=== PATIENT | male | born 1970 | race Caucasian/White ===

== ENCOUNTER 2024-06-08 14:57 | Inpatient (IN) ==
--- NOTE | 2024-06-08 16:41 | XRay Report ---
EXAM: X-ray chest 1 view not portable CLINICAL HISTORY: Weakness, fatigue PRIORS: None TECHNIQUE: PA view chest FINDINGS: The chest is well-expanded. No airspace consolidation, effusion or congestive changes. Heart size is normal. No pneumothorax. Trachea is patent. Osseous structures demonstrate no acute abnormality. No radiopaque foreign body. IMPRESSION: No plain film evidence of an acute cardiopulmonary process. Electronically signed by Guillermina Grace 06-08-2024 4:41 PM
--- NOTE | 2024-06-08 16:44 | Emergency Department Note ---
Impression & Plan Sepsis due to urinary tract infection, Hypokalemia, LIUDMILA (acute kidney injury), Rigors ED Provider Note Provider: Matthew Gifford MD CHIEF COMPLAINT: Weak, lethargic, short of breath HISTORY OF PRESENT ILLNESS: Patient is a 54-year-old gentleman presenting here today reporting onset overnight of chills with some rectal discomfort, weakness, lethargy and shortness of breath since a prostate biopsy yesterday. Was well before the biopsy. Did take a Cipro tablet before. At the biopsy. Had a bit low bit discomfort with bowel movement yesterday and some blood in the urine but this was not noted to be atypical. Well this morning and then around 11 AM to noon or so patient began with extreme uncontrollable chills and shaking. No seizure or loss of consciousness. Has been tired and lethargic however. Has not fallen but son states he seemed a bit out of it at 1 point and he had to catch him. Maybe a little shortness of breath but nonsignificant. No significant chest pain. States he feels just worn out and tired all over. Little bit of rectal discomfort but no significant testicular pain or other abdominal pain reported. No severe nausea or vomiting reported. Did take a Tylenol first thing this morning but not in hours. PAST MEDICAL HISTORY: As noted above MEDICATIONS: Reviewed home medications SOCIAL HISTORY: Non-smoker PHYSICAL EXAM: GENERAL: alert and oriented in no acute distress on stretcher but fatigued in appearance. Son at bedside Head: normocephalic and atraumatic EYES: No injection, discharge or icterus. NECK: Trachea midline ENT: Mucous membranes pink and moist. LUNGS: Airway patent. No retractions. Breath sounds clear with good air entry bilaterally. HEART: Regular rate and rhythm. No chest wall tenderness ABDOMEN: Soft and non-tender, without guarding or rebound. SKIN: Acyanotic, warm, dry, without rashes EXTREMITIES: Without swelling, tenderness or deformity NEUROLOGICAL: No focal deficits. No aphasia. No facial droop or slurred speech. Normal strength and tone in the extremities. Sensation to gross touch normal. Ambulatory. EK bpm sinus tachycardia. No PVC or PAC. Nonspecific T wave changes with a QTc of 408. CONTINUOUS CARDIAC MONITORING: was ordered and showed a heart rate of 100s-130s bpm in sinus tachycardia Patient's laboratory studies and imaging reviewed. Differential includes Infection, dehydration, metabolic abnormality, hypo/hyperglycemia, electrolyte disturbance, anemia, hypoxia, cardiac sources, intracerebral event, toxicologic, neurologic, as well as other pathologies. IMPRESSION/MEDICAL DECISION MAKING: Patient significantly tachycardic. Question if he is septic and the symptoms he describes are present rigors given his recent prostate biopsy. Cultures lactate labs sent. Given IV fluids 2.5 liters per sepsis goals given his tachycardia. Will empirically cover with a dose of Zosyn given my concerns for systemic infection. Patient afebrile here. Not hypoxic. Chest x-ray reassuring. Sent for CT the abdomen pelvis to eval prostate biopsy site for any other abnormality, abscess, or perforation. Lactate elevated upon arrival at 4.9. Creatinine 1.4 somewhat elevated with mild hypokalemia of 3.0. Very slight AST ALT alkaline phosphatase elevation with normal bilirubin. Urinalysis concerning for white blood cells as well as blood. Again empirically covered with antibioticsZosyn. Leukocytosis of 16.5. CT abdomen pelvis with some slight information the prostate but no other free air or abscess reported. Patient is feeling bit better but obviously septic. Procalcitonin severely elevated at 30. Has received broad-spectrum Zosyn. Will bring in the hospital for further care. Again have strong suspicion patient was having some bacteremia causing rigors earlier. He was agreeable to stay. Hospitalist contacted and case discussed. DIAGNOSIS: Sepsis of urinary origin, elevated lactate, LIUDMILA DISPOSITION: Hospitalist will evaluate Patient was agreeable with this plan. Critical Care I have personally spent 36 minutes of critical care time in the direct management of this patient. This includes bedside care, interpretation of diagnostic studies, and testing, discussion with consultants, patient, and family members, and other required patient management activities. These 36 minutes is in excess of all separately billable procedures. Past Med/Surg History Problem List (Updated 06/08/24 @ 19:38 by Jerry Nguyễn MD) Sepsis Rigors (Acute) LIUDMILA (acute kidney injury) (Acute) Hypokalemia (Acute) Sepsis due to urinary tract infection (Acute) Elevated prostate specific antigen (PSA) Microscopic hematuria Nocturnal hypoxemia Severe obstructive sleep apnea HTN (hypertension) (Chronic) Erectile dysfunction (Chronic) ROSA (obstructive sleep apnea) Medical History Blood in urine Chronic back pain HTN (hypertension) Kidney stones Surgical History S/P epidural steroid injection Hx of LASIK Family History Father Cardiac disorder Diabetes Hypertension Mother Cardiac disorder Gallbladder disease Hypertension Denies family history of Ovarian cancer Prostate cancer Myocardial infarction Breast cancer Colorectal cancer Social History (Updated 10/31/22 @ 08:40 by Jazmine Pedraza LPN) Smoking Status: Never smoker Second Hand Exposure: No; Do You Dip or Chew Tobacco: No; Hx Alcohol Use: No Hx Substance Use: No Preferred Language: Spanish Communication Ability: Effective Visual Impairment: No Limitations Hearing Ability: Normal Bracelet And Brooch Maker Required: No Beliefs That Will Affect Care: None marital status: Current Living Situation: Spouse and Family current occupational status: employed 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 [employer] How many Children do You have: 2 Other Information That Helps Us Care for You: No Feels Safe at Home: Yes Safety Concerns: Feels Safe At This Time Childhood Exposure to Second-Hand Smoke: No Diet: regular caffeine: Yes during the past year weight has: remained stable Dental Care, Regularly: Yes Physical Activity Frequency: Daily Seatbelt Use: always Sunscreen Use: No Assistive Devices: Glasses Allergies Allergies Allergy/AdvReac Type Severity Reaction Status Date / Time No Known Allergies Allergy Verified 06/08/24 18:27 Home Meds Home Medications Medication Instructions Recorded Confirmed acetaminophen 500 mg tablet 500 mg PO Q6H PRN Pain/Fever 06/08/24 06/08/24 lisinopril 20 1 tab PO QAM 06/08/24 06/08/24 mg-hydrochlorothiazide 25 mg tablet Results & Data (ED) Vital Signs Vital Signs - 24 hr 06/08/24 15:26 06/08/24 16:50 06/08/24 16:58 Temperature 36.8 C 36.6 C Temperature Source Temporal Artery Scan Oral Pulse Rate 133 H 130 H Pulse Rate [Apical] 130 H Pulse Rhythm [Apical] Pulse Strength [Apical] Respiratory Rate 14 20 Respiratory Effort / Characteristics Non-Labored Non-Labored Spontaneous Respiratory Depth Normal Normal Respiratory Pattern Blood Pressure 110/71 Blood Pressure [Right Arm] 130/86 Blood Pressure Mean 84 Blood Pressure Mean [Right Arm] 100 Pulse Oximetry 95 96 Oxygen Delivery Method Room Air Room Air Sepsis Recent Fever Within 48 Hours No Sepsis New/Unexplained Change in Mental Status N/A Sepsis Action Taken by Nursing No Action Required 06/08/24 18:11 06/08/24 18:12 Temperature 36.9 C Temperature Source Oral Pulse Rate Pulse Rate [Apical] 118 H Pulse Rhythm [Apical] Regular Pulse Strength [Apical] Normal Respiratory Rate 18 Respiratory Effort / Characteristics Non-Labored Spontaneous Respiratory Depth Normal Respiratory Pattern Regular Blood Pressure Blood Pressure [Right Arm] 114/80 Blood Pressure Mean Blood Pressure Mean [Right Arm] 91 Pulse Oximetry 95 94 Oxygen Delivery Method Room Air Room Air Sepsis Recent Fever Within 48 Hours Sepsis New/Unexplained Change in Mental Status Sepsis Action Taken by Nursing Laboratory Data 06/08/24 16:41 06/08/24 16:41 Lab Results 06/08/24 06/08/24 06/08/24 Range/Units 16:41 16:47 16:48 WBC 16.59 H (4.8-10.8) K/ul RBC 5.03 (4.70-6.10) M/uL Hgb 13.5 L (14.0-18.0) g/dl POC Hgb 13.9 L (14.0-18.0) g/dl Hct 41.3 L (42.0-52.0) % POC Hct 41 L (42-52) % MCV 82.1 (80.0-100.0) fL MCH 26.8 (25.0-34.0) pg MCHC 32.7 (32.0-36.0) g/dL RDW Std Deviation 39.6 (36.4-46.3) fL RDW Coeff of Ara 13.3 (11.5-14.5) % Plt Count 192 (130-400) K/uL MPV 11.4 (9.4-12.4) fL Immature Gran % (Auto) 0.7 % Neut % (Auto) 96.1 % Lymph % (Auto) 1.7 % Blount % (Auto) 1.0 % Eos % (Auto) 0.1 % Baso % (Auto) 0.4 % Neut # (Auto) 15.95 H (1.40-6.50) K/uL Lymph # (Auto) 0.29 L (1.20-3.40) K/uL Blount # (Auto) 0.17 (0.11-0.59) K/uL Eos # (Auto) 0.01 (0.00-0.50) K/uL Baso # (Auto) 0.06 (0.00-0.20) K/uL Immature Gran # (Auto) 0.11 (0.01-0.20) K/uL POC Sodium 140 (135-144) mmol/L Sodium 138 (136-145) mmol/L POC Potassium 2.9 L (3.3-5.0) mmol/L Potassium 3.0 L (3.5-5.1) mmol/L POC Chloride 101 (101-112) mmol/L Chloride 102 (98-107) mmol/L Carbon Dioxide 25 (21-32) mmol/L POC Total CO2 23 L (24-31) mmol/L Anion Gap 11 (3-11) POC Anion Gap 20.0 (16-25) mmol/L POC BUN 20 H (7-18) mg/dl BUN 19 (6-23) mg/dl Creatinine 1.43 H (0.6-1.4) mg/dl POC Creatinine 1.5 H (0.6-1.3) mg/dl Est Cr Clr Drug Dosing 75.7 ml/min eGFR 57.51 BUN/Creatinine Ratio 13.3 (10-20) Glucose 147 H (70-99(Fasting)) mg/dl POC Glucose (other) 146 H (70-99) mg/dl Lactate (0.4-2.0) mmol/L Calcium 9.1 (8.6-10.3) mg/dl POC Ioniz Calcium Ayla 1.18 (1.12-1.32) mmol/l Total Bilirubin 1.0 (0.2-1.0) mg/dl AST 100 H (13-39) U/L ALT 72 H (7-52) U/L Alkaline Phosphatase 160 H (34-104) U/L Total Protein 7.3 (6.0-8.3) gm/dl Albumin 4.0 (3.4-5.0) gm/dl Globulin 3.3 (2.5-4.0) gm/dl Albumin/Globulin Ratio 1.2 (0.9-2) Lipase 33 (11-82) U/L Procalcitonin 30.50 H (0-0.5) ng/ml TSH 2.848 (0.300-4.500) uIu/ml Urine Color Red Urine Appearance Cloudy A (Clear) Urine pH 5.5 (4.5-7.5) Ur Specific [place] 1.025 (1.000-1.030) Urine Protein 3+ H (Negative) Urine Glucose (UA) Trace H (Negative) Urine Ketones Trace H (Negative) Urine Blood 3+ H (Negative) Urine Nitrite Negative (Negative) Urine Bilirubin 2+ H (Negative) Urine Urobilinogen Positive H (Negative) Ur Leukocyte Esterase Trace H (Negative) Urine RBC >20 H (0-2) /hpf Urine WBC >50 H (0-5) /hpf Ur Epithelial Cells 0-2 (0-2) /hpf Urine Bacteria 1+ H (None Seen) Hyaline Casts P (None Presnt) /lpf RBC Casts P (None Prsent) /lpf Urine Mucus Present A (None Prsent) 06/08/24 06/08/24 Range/Units 17:06 18:30 WBC (4.8-10.8) K/ul RBC (4.70-6.10) M/uL Hgb (14.0-18.0) g/dl POC Hgb (14.0-18.0) g/dl Hct (42.0-52.0) % POC Hct (42-52) % MCV (80.0-100.0) fL MCH (25.0-34.0) pg MCHC (32.0-36.0) g/dL RDW Std Deviation (36.4-46.3) fL RDW Coeff of Ara (11.5-14.5) % Plt Count (130-400) K/uL MPV (9.4-12.4) fL Immature Gran % (Auto) % Neut % (Auto) % Lymph % (Auto) % Blount % (Auto) % Eos % (Auto) % Baso % (Auto) % Neut # (Auto) (1.40-6.50) K/uL Lymph # (Auto) (1.20-3.40) K/uL Blount # (Auto) (0.11-0.59) K/uL Eos # (Auto) (0.00-0.50) K/uL Baso # (Auto) (0.00-0.20) K/uL Immature Gran # (Auto) (0.01-0.20) K/uL POC Sodium (135-144) mmol/L Sodium (136-145) mmol/L POC Potassium (3.3-5.0) mmol/L Potassium (3.5-5.1) mmol/L POC Chloride (101-112) mmol/L Chloride (98-107) mmol/L Carbon Dioxide (21-32) mmol/L POC Total CO2 (24-31) mmol/L Anion Gap (3-11) POC Anion Gap (16-25) mmol/L POC BUN (7-18) mg/dl BUN (6-23) mg/dl Creatinine (0.6-1.4) mg/dl POC Creatinine (0.6-1.3) mg/dl Est Cr Clr Drug Dosing ml/min eGFR BUN/Creatinine Ratio (10-20) Glucose (70-99(Fasting)) mg/dl POC Glucose (other) (70-99) mg/dl Lactate 4.9 H* 3.8 H* (0.4-2.0) mmol/L Calcium (8.6-10.3) mg/dl POC Ioniz Calcium Ayla (1.12-1.32) mmol/l Total Bilirubin (0.2-1.0) mg/dl AST (13-39) U/L ALT (7-52) U/L Alkaline Phosphatase (34-104) U/L Total Protein (6.0-8.3) gm/dl Albumin (3.4-5.0) gm/dl Globulin (2.5-4.0) gm/dl Albumin/Globulin Ratio (0.9-2) Lipase (11-82) U/L Procalcitonin (0-0.5) ng/ml TSH (0.300-4.500) uIu/ml Urine Color Urine Appearance (Clear) Urine pH (4.5-7.5) Ur Specific [place] (1.000-1.030) Urine Protein (Negative) Urine Glucose (UA) (Negative) Urine Ketones (Negative) Urine Blood (Negative) Urine Nitrite (Negative) Urine Bilirubin (Negative) Urine Urobilinogen (Negative) Ur Leukocyte Esterase (Negative) Urine RBC (0-2) /hpf Urine WBC (0-5) /hpf Ur Epithelial Cells (0-2) /hpf Urine Bacteria (None Seen) Hyaline Casts (None Presnt) /lpf RBC Casts (None Prsent) /lpf Urine Mucus (None Prsent) Administered Medications Piperacillin Sod/Tazobactam Sod (Zosyn) 4.5 gm in 100 mls @ 25 mls/hr IV Q8H SHAGGY; Protocol Stop: 06/10/24 21:59 Last Admin: 06/08/24 21:11 Dose: 25 mls/hr Documented By: SJG Discontinued Medications Sodium Chloride (Nss) 1,000 mls @ 999 mls/hr IV .Q1H1M SHAGGY Stop: 06/08/24 19:00 Last Infusion: 06/08/24 18:57 Dose: Infused Documented By: Admin: 06/08/24 17:31 Dose: 999 mls/hr Documented By: Infusion: 06/08/24 17:31 Dose: Infused Documented By: Admin: 06/08/24 17:23 Dose: 999 mls/hr Documented By: HS Sodium Chloride (Nss) 500 mls @ 999 mls/hr IV .Q31M ONE Stop: 06/08/24 17:29 Last Infusion: 06/08/24 19:00 Dose: Infused Documented By: Admin: 06/08/24 17:28 Dose: 999 mls/hr Documented By: HS Piperacillin Sod/Tazobactam Sod (Zosyn) 4.5 gm in 100 mls @ 200 mls/hr IV NOW ONE; Protocol Stop: 06/08/24 17:28 Last Infusion: 06/08/24 18:58 Dose: Infused Documented By: Admin: 06/08/24 17:27 Dose: 200 mls/hr Documented By: HS Acetaminophen (Ofirmev) 1,000 mg in 100 mls @ 400 mls/hr IV NOW STA Stop: 06/08/24 17:14 Last Infusion: 06/08/24 17:59 Dose: Infused Documented By: Admin: 06/08/24 17:27 Dose: 400 mls/hr Documented By: HS Potassium Chloride (K Kt / Wtr) 10 meq in 100 mls @ 100 mls/hr IV ONE ONE; Protocol Stop: 06/08/24 19:35 Last Infusion: 06/08/24 19:59 Dose: Infused Documented By: Admin: 06/08/24 18:58 Dose: 100 mls/hr Documented By: MERE Ioversol (Optiray 320 100ml) 93 ml IV ONCE ONE Stop: 06/08/24 17:54 Last Admin: 06/08/24 17:54 Dose: 93 ml Documented By: HANDY Potassium Chloride (Potassium Chloride Crtab 20 Meq Tabcr) 40 meq PO NOW STA Stop: 06/08/24 19:15 Last Admin: 06/08/24 19:58 Dose: 40 meq Documented By: [facility] [place] Imaging Data Radiologist's Impression: Chest X-Ray 06/08/24 15:30 EXAM: X-ray chest 1 view not portable CLINICAL HISTORY: Weakness, fatigue PRIORS: None TECHNIQUE: PA view chest FINDINGS: The chest is well-expanded. No airspace consolidation, effusion or congestive changes. Heart size is normal. No pneumothorax. Trachea is patent. Osseous structures demonstrate no acute abnormality. No radiopaque foreign body. IMPRESSION: No plain film evidence of an acute cardiopulmonary process. Electronically signed by Guillermina Grace 06-08-2024 4:41 PM Abdomen/Pelvis CT 06/08/24 16:59 EXAMINATION: Abdomen and pelvis CT with CLINICAL HISTORY: Prostate biopsy yesterday, fever chills hematuria PRIORS: CT abdomen TECHNIQUE: Contiguous axial images were obtained through the abdomen and pelvis with the use of intravenous contrast. Sagittal and coronal reformations are supplied. FINDINGS: Lung bases unremarkable. No pleural effusion. Contrast-enhanced liver is enlarged measuring 23 cm. No fatty infiltration. The gallbladder, portal vein, pancreas, spleen, stomach, adrenals, aorta and IVC are morphologically unremarkable. The kidneys enhance symmetrically. No obstructing calculus. No striated nephrogram or hydronephrosis. No retroperitoneal hemorrhage. The prostate is enlarged with a heterogeneous appearance and coarse calcifications noted. The prostate measures 5.9 x 6.7 by approximately 6.5 cm with moderate regional inflammatory change surrounding the prostate and within the pelvis. Seminal vesicles are heterogeneous in appearance with surrounding inflammatory change. No drainable fluid collection or discrete hematoma. Urinary bladder distends normally. No intraluminal gas. No free gas in the pelvis. Adjacent sigmoid colon is intact. A moderate amount of formed stool present in the colon. Appendix is normal. No dilated loops of bowel. No extraluminal gas. In bone windows no acute osseous abnormality. Moderate degenerative change at L4-L5. IMPRESSION: 1. Enlarged prostate with moderate inflammatory change in the pelvis surrounding the prostate and seminal vesicles. Finding could represent inflammation from recent procedure or infection. No drainable fluid collection or hematoma. No gas or hematoma in the urinary bladder. Electronically signed by Guillermina Grace 06-08-2024 6:12 PM Discharge Plan Visit Data Chief Complaint: Weakness Stated Complaint: WEAK, CHILLS, LETHARGIC, CHEST PAINS ED Provider: Matthew Gifford Discharge Problem: Sepsis due to urinary tract infection, Hypokalemia, LIUDMILA (acute kidney injury), Rigors Patient Disposition: Being Evaluated by Hospitalist Discharge Instructions Interventions: ED Discharge Assessment Last Done: 06/08/24 20:21
[2024-06-08 17:00] LABS: iSTAT Creatinine 1.5 mg/dl (0.6-1.3); iSTAT Hemoglobin 13.9 g/dl (14.0-18.0); iSTAT Ionized Calcium 1.18 mmol/l (1.12-1.32); iSTAT Potassium 2.9 mmol/L (3.3-5.0)
[2024-06-08 17:15] LABS: Appearance Urine Cloudy (Clear); Bilirubin Urine 2+ (Negative); Blood Urine 3+ (Negative); Color Urine Red; Glucose Urine UA Trace (Negative); Ketones Urine Trace (Negative); Leukocyte Esterase Urine Trace (Negative); Nitrite Urine Negative (Negative); Protein Urine 3+ (Negative); Specific Gravity Urine 1.025 (1.000-1.030); Urobilinogen Urine Positive (Negative); pH Urine 5.5 (4.5-7.5)
[2024-06-08 17:21] LABS: Hyaline Casts Urine P /lpf (None Presnt); Red Blood Cell Casts Urine P /lpf (None Prsent)
[2024-06-08 17:22] LABS: Epithelial Cell Urine 0-2 /hpf (0-2)
[2024-06-08 17:23] LABS: Bacteria Urine 1+ (None Seen); RBC Urine >20 /hpf (0-2); WBC Urine >50 /hpf (0-5)
[2024-06-08] MEDS: SODIUM CHLORIDE 0.9% 1,000 ML IV SCH (17:23)
[2024-06-08 17:24] LABS: Mucus Urine Present (None Prsent)
[2024-06-08 17:27] LABS: Albumin Globulin Ratio 1.2 (0.9-2); BUN Creatinine Ratio 13.3 (10-20); Calcium 9.1 mg/dl (8.6-10.3); Creatinine Clr Calc Pharmacy 75.7 ml/min; Globulin 3.3 gm/dl (2.5-4.0); Total Protein 7.3 gm/dl (6.0-8.3)
[2024-06-08] MEDS: PIPERACILLIN/TAZOBACTAM 4.5 GM/100 ML BAG IV ONE (17:27)
[2024-06-08] MEDS: ACETAMINOPHEN 1,000 MG/100 ML VIAL IV STA (17:27)
[2024-06-08] MEDS: SODIUM CHLORIDE 0.9% 500 ML IV ONE (17:28)
[2024-06-08 17:42] LABS: Thyroid Stimulating Hormone 2.848 uIu/ml (0.300-4.500)
[2024-06-08 17:45] LABS: Hematocrit (blood only) 41.3 % (42.0-52.0); Hemoglobin 13.5 g/dl (14.0-18.0); Mean Corpuscular Hemoglobin 26.8 pg (25.0-34.0); Mean Corpuscular Hgb Conc 32.7 g/dL (32.0-36.0); Mean Corpuscular Volume 82.1 fL (80.0-100.0); Mean Platelet Volume 11.4 fL (9.4-12.4); Platelet Count 192 K/uL (130-400); RDW Coefficient of Variation 13.3 % (11.5-14.5); RDW Standard Deviation 39.6 fL (36.4-46.3); Red Blood Count 5.03 M/uL (4.70-6.10); White Blood Count 16.59 K/ul (4.8-10.8)
[2024-06-08] MEDS: OPTIRAY 320 100ml IV ONE (17:54)
--- NOTE | 2024-06-08 18:12 | CT Scan Report ---
EXAMINATION: Abdomen and pelvis CT with CLINICAL HISTORY: Prostate biopsy yesterday, fever chills hematuria PRIORS: CT abdomen TECHNIQUE: Contiguous axial images were obtained through the abdomen and pelvis with the use of intravenous contrast. Sagittal and coronal reformations are supplied. FINDINGS: Lung bases unremarkable. No pleural effusion. Contrast-enhanced liver is enlarged measuring 23 cm. No fatty infiltration. The gallbladder, portal vein, pancreas, spleen, stomach, adrenals, aorta and IVC are morphologically unremarkable. The kidneys enhance symmetrically. No obstructing calculus. No striated nephrogram or hydronephrosis. No retroperitoneal hemorrhage. The prostate is enlarged with a heterogeneous appearance and coarse calcifications noted. The prostate measures 5.9 x 6.7 by approximately 6.5 cm with moderate regional inflammatory change surrounding the prostate and within the pelvis. Seminal vesicles are heterogeneous in appearance with surrounding inflammatory change. No drainable fluid collection or discrete hematoma. Urinary bladder distends normally. No intraluminal gas. No free gas in the pelvis. Adjacent sigmoid colon is intact. A moderate amount of formed stool present in the colon. Appendix is normal. No dilated loops of bowel. No extraluminal gas. In bone windows no acute osseous abnormality. Moderate degenerative change at L4-L5. IMPRESSION: 1. Enlarged prostate with moderate inflammatory change in the pelvis surrounding the prostate and seminal vesicles. Finding could represent inflammation from recent procedure or infection. No drainable fluid collection or hematoma. No gas or hematoma in the urinary bladder. Electronically signed by Guillermina Grace 06-08-2024 6:12 PM
[2024-06-08 18:22] LABS: Basophils # (auto) 0.06 K/uL (0.00-0.20); Basophils % (auto) 0.4 %; Eosinophils # (auto) 0.01 K/uL (0.00-0.50); Eosinophils % (auto) 0.1 %; Immature Granulocytes # (auto) 0.11 K/uL (0.01-0.20); Immature Granulocytes % (auto) 0.7 %; Lymphocytes # (auto) 0.29 K/uL (1.20-3.40); Lymphocytes % (auto) 1.7 %; Monocytes # (auto) 0.17 K/uL (0.11-0.59); Neutrophils # (auto) 15.95 K/uL (1.40-6.50); Neutrophils % (auto) 96.1 %
[2024-06-08] MEDS: POTASSIUM CHLORIDE / WTR 10 MEQ/100 ML PLCT IV ONE (18:58)
--- NOTE | 2024-06-08 19:38 | History & Physical Report ---
Date of Service June 08, 2024 Assessment & Plan (1) Sepsis: Plan: Secondary to prostatitis s/p prostate biopsy IV Zosyn pending follow up blood and urine culture Lactate 4.9, NSS 2500ml bolus given (30ml/kg IBW = 2100ml), add additional Plasma-Lyte 1L bolus (2) ROSA (obstructive sleep apnea): Plan: CPAP HS (3) Hypokalemia: Plan: K 3.0 -> KCl 10 meq IV given in ER, will given 40 meq PO (4) HTN (hypertension): Plan: Hold lisinopril/HCTZ Plan VTE Prophylaxis - Lovenox 40mg SQ QPM Diet - regular Disposition - admit to PCU Admission and Anticipated Discharge Date Admission Date: June 08, 2024 History of Present Illness Chief Complaint: Rigors Primary Care Provider: Kaylin Jurado MD Kameron Phillips is a 54 year old male who presents to the ER with rigors. He underwent prostate biopsy yesterday with ciprofloxacin for antibiotic prophylaxis. he was feeling well prior to the procedure. Later that night he started having rigors starting around 11pm. No chest pain, shortness of breath, cough, abdominal pain, diarrhea, flank tenderness or urinary symptoms. Allergies Allergy/AdvReac Type Severity Reaction Status Date / Time No Known Allergies Allergy Verified 06/08/24 18:27 Home Medications Medication Instructions Recorded Confirmed Type acetaminophen 500 mg tablet 500 mg PO Q6H PRN Pain/Fever 06/08/24 06/08/24 History lisinopril 20 1 tab PO QAM 06/08/24 06/08/24 History mg-hydrochlorothiazide 25 mg tablet Past Med/Surg History Problem List (Updated 06/08/24 @ 19:38 by Jerry Nguyễn MD) Sepsis Rigors (Acute) LIUDMILA (acute kidney injury) (Acute) Hypokalemia (Acute) Sepsis due to urinary tract infection (Acute) Elevated prostate specific antigen (PSA) Microscopic hematuria Nocturnal hypoxemia Severe obstructive sleep apnea HTN (hypertension) (Chronic) Erectile dysfunction (Chronic) ROSA (obstructive sleep apnea) Medical History Blood in urine Chronic back pain HTN (hypertension) Kidney stones Surgical History S/P epidural steroid injection Hx of LASIK Family History Father Cardiac disorder Diabetes Hypertension Mother Cardiac disorder Gallbladder disease Hypertension Denies family history of Ovarian cancer Prostate cancer Myocardial infarction Breast cancer Colorectal cancer Social History (Updated 10/31/22 @ 08:40 by Jazmine Pedraza LPN) Smoking Status: Never smoker Second Hand Exposure: No; Do You Dip or Chew Tobacco: No; Hx Alcohol Use: No Hx Substance Use: No Preferred Language: Vietnamese Communication Ability: Effective Visual Impairment: No Limitations Hearing Ability: Normal Supervisor Home [employer]oration Service Required: No Beliefs That Will Affect Care: None marital status: Current Living Situation: Spouse and Family current occupational status: employed current occupation: [employer] and [employer] How many Children do You have: 2 Other Information That Helps Us Care for You: No Feels Safe at Home: Yes Safety Concerns: Feels Safe At This Time Childhood Exposure to Second-Hand Smoke: No Diet: regular caffeine: Yes during the past year weight has: remained stable Dental Care, Regularly: Yes Physical Activity Frequency: Daily Seatbelt Use: always Sunscreen Use: No Assistive Devices: Glasses Review of Systems Review of Systems: All systems reviewed & are unremarkable except as noted in HPI & below Physical Exam Constitutional: WD/WN, vitals as above Eyes: + anicteric sclerae; normal pupil size ENMT: external ear and nose normal, oropharynx normal Respiratory: normal respiratory effort, lungs clear to auscultation Cardiovascular: Rate/Rhythm: regular rhythm and + tachycardic Heart Sounds: no murmur Extremities: normal capillary refill; no calf tenderness and no ped al edema Gastrointestinal (Abdomen): normal bowel sounds, soft, nontender, no hepatosplenomegaly Musculoskeletal: no cyanosis or clubbing, extremities motor strength 5/5 Skin: no rashes, warm and dry Neurologic: moves all extremities and awake; not confused Psychiatric: A+Ox3, euthymic affect Genitourinary: no CVA tenderness Results & Data Results & Data Vital Signs (Past 12 Hours) Vital Signs Temp Pulse Pulse Resp BP BP Pulse Ox 06/08/24 18:12 36.9 C 118 H 18 114/80 94 06/08/24 18:11 95 06/08/24 16:58 130 H 06/08/24 16:50 36.6 C 130 H 20 130/86 96 06/08/24 15:26 36.8 C 133 H 14 110/71 95 O2 Del Method 06/08/24 18:12 Room Air 06/08/24 18:11 Room Air 06/08/24 16:58 06/08/24 16:50 Room Air 06/08/24 15:26 Room Air Laboratory Results Abnormal lab results 06/08/24 06/08/24 06/08/24 Range/Units 16:41 16:47 16:48 WBC 16.59 H (4.8-10.8) K/ul Hgb 13.5 L (14.0-18.0) g/dl POC Hgb 13.9 L (14.0-18.0) g/dl Hct 41.3 L (42.0-52.0) % POC Hct 41 L (42-52) % Neut # (Auto) 15.95 H (1.40-6.50) K/uL Lymph # (Auto) 0.29 L (1.20-3.40) K/uL POC Potassium 2.9 L (3.3-5.0) mmol/L Potassium 3.0 L (3.5-5.1) mmol/L POC Total CO2 23 L (24-31) mmol/L POC BUN 20 H (7-18) mg/dl Creatinine 1.43 H (0.6-1.4) mg/dl POC Creatinine 1.5 H (0.6-1.3) mg/dl Glucose 147 H (70-99(Fasting)) mg/dl POC Glucose (other) 146 H (70-99) mg/dl Lactate (0.4-2.0) mmol/L AST 100 H (13-39) U/L ALT 72 H (7-52) U/L Alkaline Phosphatase 160 H (34-104) U/L Procalcitonin 30.50 H (0-0.5) ng/ml Urine Appearance Cloudy A (Clear) Urine Protein 3+ H (Negative) Urine Glucose (UA) Trace H (Negative) Urine Ketones Trace H (Negative) Urine Blood 3+ H (Negative) Urine Bilirubin 2+ H (Negative) Urine Urobilinogen Positive H (Negative) Ur Leukocyte Esterase Trace H (Negative) Urine RBC >20 H (0-2) /hpf Urine WBC >50 H (0-5) /hpf Urine Bacteria 1+ H (None Seen) Urine Mucus Present A (None Prsent) 06/08/24 06/08/24 Range/Units 17:06 18:30 WBC (4.8-10.8) K/ul Hgb (14.0-18.0) g/dl POC Hgb (14.0-18.0) g/dl Hct (42.0-52.0) % POC Hct (42-52) % Neut # (Auto) (1.40-6.50) K/uL Lymph # (Auto) (1.20-3.40) K/uL POC Potassium (3.3-5.0) mmol/L Potassium (3.5-5.1) mmol/L POC Total CO2 (24-31) mmol/L POC BUN (7-18) mg/dl Creatinine (0.6-1.4) mg/dl POC Creatinine (0.6-1.3) mg/dl Glucose (70-99(Fasting)) mg/dl POC Glucose (other) (70-99) mg/dl Lactate 4.9 H* 3.8 H* (0.4-2.0) mmol/L AST (13-39) U/L ALT (7-52) U/L Alkaline Phosphatase (34-104) U/L Procalcitonin (0-0.5) ng/ml Urine Appearance (Clear) Urine Protein (Negative) Urine Glucose (UA) (Negative) Urine Ketones (Negative) Urine Blood (Negative) Urine Bilirubin (Negative) Urine Urobilinogen (Negative) Ur Leukocyte Esterase (Negative) Urine RBC (0-2) /hpf Urine WBC (0-5) /hpf Urine Bacteria (None Seen) Urine Mucus (None Prsent) Diagnostic Findings Abdomen and pelvis CT with IV Contrast CLINICAL HISTORY: Prostate biopsy yesterday, fever chills hematuria PRIORS: CT abdomen TECHNIQUE: Contiguous axial images were obtained through the abdomen and pelvis with the use of intravenous contrast. Sagittal and coronal reformations are supplied. FINDINGS: Lung bases unremarkable. No pleural effusion. Contrast-enhanced liver is enlarged measuring 23 cm. No fatty infiltration. The gallbladder, portal vein, pancreas, spleen, stomach, adrenals, aorta and IVC are morphologically unremarkable. The kidneys enhance symmetrically. No obstructing calculus. No striated nephrogram or hydronephrosis. No retroperitoneal hemorrhage. The prostate is enlarged with a heterogeneous appearance and coarse calcifications noted. The prostate measures 5.9 x 6.7 by approximately 6.5 cm with moderate regional inflammatory change surrounding the prostate and within the pelvis. Seminal vesicles are heterogeneous in appearance with surrounding inflammatory change. No drainable fluid collection or discrete hematoma. Urinary bladder distends normally. No intraluminal gas. No free gas in the pelvis. Adjacent sigmoid colon is intact. A moderate amount of formed stool present in the colon. Appendix is normal. No dilated loops of bowel. No extraluminal gas. In bone windows no acute osseous abnormality. Moderate degenerative change at L4-L5. IMPRESSION: 1. Enlarged prostate with moderate inflammatory change in the pelvis surrounding the prostate and seminal vesicles. Finding could represent inflammation from recent procedure or infection. No drainable fluid collection or hematoma. No gas or hematoma in the urinary bladder. Medications Administered ER Medications Given: Normal saline 2L bolus Normal saline 500ml bolus Zosyn 4.5g IV Acetaminophen 1000mg IV Potassium chloride 10 meq IV ECG Rate (beats per minute): 132 Rhythm: sinus tachycardia Findings: no acute ischemic change Comparison ECG Date: no prior available Code Status & VTE Plan Code Status Full VTE Prophylaxis Plan VTE Prophylaxis will be ordered: Yes PG Care Time/CCT Total # of Minutes Spent Total Time Spent with Patient: Total time spent is greater than 50% in coordination of care (as documented) at patient's floor/unit and/or counseling patient: Coding Level of Care Code 48221 INT INP/OBS CARE 3/75MIN Diagnoses Sepsis A41.9 ROSA (obstructive sleep apnea) G47.33 Hypokalemia E87.6 HTN (hypertension) I10
[2024-06-08] MEDS: POTASSIUM CHLORIDE CRTAB 20 MEQ TABCR PO STA (19:58)
[2024-06-08] MEDS: PIPERACILLIN/TAZOBACTAM 4.5 GM/100 ML BAG IV SCH (21:11)
[2024-06-08] MEDS ORDERED: ENOXAPARIN INJ 40 MG/0.4 ML SYR SQ SCH (23:25)
[2024-06-08] MEDS: PLASMA-LYTE A 1,000 ML IV SCH (23:31)
[2024-06-09] MEDS ORDERED: Nursing to Pharmacy Communication SCH (00:45)
[2024-06-09 05:34] LABS: A calco-baum cmplx NotReported Not Detected (NotDetected); Bact fragilis Not Reported Not Detected (NotDetected); Blood Culture Id Panel See PCR Comment (NotDetected); C auris Not Reported Not Detected (NotDetected); CTX-M Resistant Gene Not Detected (NotDetected); Calbicans Not Reported Not Detected (NotDetected); Candida glabrata Not Reported Not Detected (NotDetected); Candida krusei Not Reported Not Detected (NotDetected); Cneoformans/gatti Not Reported Not Detected (NotDetected); Cparapsilosis Not Reported Not Detected (NotDetected); E cloacae compx Not Reported Not Detected (NotDetected); Efaecalis Not Reported Not Detected (NotDetected); Efaecium Not Reported Not Detected (NotDetected); Enterobacterales DETECTED (NotDetected); Enterobacterales Not Reported DETECTED (NotDetected); Escherichia coli Not Reported DETECTED (NotDetected); H influenzae Not Reported Not Detected (NotDetected); IMP Resistant Gene Not Detected (NotDetected); K aerogenes Not Reported Not Detected (NotDetected); KPC Resistant Gene Not Detected (NotDetected); Koxytoca Not Reported Not Detected (NotDetected); Kpneumoniae grp Not Reported Not Detected (NotDetected); Lmonocyt Not Reported Not Detected (NotDetected); N meningitidis Not Reported Not Detected (NotDetected); NDM Resistant Gene Not Detected (NotDetected); OXA 48 Like Resistant Gene Not Detected (NotDetected); P aeruginosa Not Reported Not Detected (NotDetected); Proteus spp Not Reported Not Detected (NotDetected); Salmonella spp Not Reported Not Detected (NotDetected); Staph lugdunensis Not Reported Not Detected (NotDetected); Staph spp. Not Reported Not Detected (NotDetected); Staphaureus Not Reported Not Detected (NotDetected); Staphepi Not Reported Not Detected (NotDetected); Stenmaltophilia Not Reported Not Detected (NotDetected); Strep agal(GrpB) Not Reported Not Detected (NotDetected); Strep pneum Not Reported Not Detected (NotDetected); Strep pyog (GrpA) Not Reported Not Detected (NotDetected); Strep spp Not Reported Not Detected (NotDetected); VIM Resistant Gene Not Detected (NotDetected); mcr-1 Colistin Resistant Gene Not Detected (NotDetected)
[2024-06-09] MEDS: ENOXAPARIN INJ 40 MG/0.4 ML SYR SQ SCH (05:46)
[2024-06-09] MEDS: ACETAMINOPHEN 325 MG TAB PO PRN (06:43)
[2024-06-09 07:00] LABS: Hematocrit (blood only) 39.5 % (42.0-52.0); Mean Corpuscular Hemoglobin 27.1 pg (25.0-34.0); Mean Corpuscular Hgb Conc 32.9 g/dL (32.0-36.0); Mean Corpuscular Volume 82.5 fL (80.0-100.0); Mean Platelet Volume 11.4 fL (9.4-12.4); Platelet Count 152 K/uL (130-400); RDW Coefficient of Variation 13.8 % (11.5-14.5); Red Blood Count 4.79 M/uL (4.70-6.10); White Blood Count 19.09 K/ul (4.8-10.8)
[2024-06-09 07:19] LABS: Albumin Globulin Ratio 1.2 (0.9-2); Albumin Level 3.6 gm/dl (3.4-5.0); BUN Creatinine Ratio 18.7 (10-20); Bilirubin,Total 3.3 mg/dl (0.2-1.0); C Reactive Protein 18.37 mg/dl (0-0.5); Calcium 8.3 mg/dl (8.6-10.3); Creatinine Clr Calc Pharmacy 75.5 ml/min; Total Protein 6.6 gm/dl (6.0-8.3)
--- NOTE | 2024-06-09 07:22 | Hospitalist Progress Note ---
Date of Service June 09, 2024 Assessment & Plan (1) Sepsis: Plan: Secondary to prostatitis s/p prostate biopsy IV Zosyn pending follow up blood and urine culture fluid bolus given, follow crp to eval for improving inflamation (2) ROSA (obstructive sleep apnea): Plan: CPAP HS, continue s (3) Hypokalemia: Plan: K 3.0 repelete follow magnesium also (4) HTN (hypertension): Plan: Hold lisinopril/HCTZ Plan VTE Prophylaxis - Lovenox 40mg SQ QPM Diet - regular Admission and Anticipated Discharge Date Admission Date: June 08, 2024 Subjective pt is diaphoretic, has some abd pain and nausea son is at the bedside and updated Physical Exam Physical Exam: awake and sweaty cardiac is regular lungs are clear abd is soft and uncomfortable but not tender Results & Data Results & Data Vital Signs (Past 12 Hours) Vital Signs Temp Pulse Pulse Resp BP Pulse Ox O2 Del Method 06/09/24 07:06 106 H 06/09/24 06:41 100.4 F H 06/09/24 03:02 97.9 F 105 H 18 135/82 96 Room Air 06/09/24 00:07 98.6 F 106 H 18 132/70 95 Room Air 06/09/24 00:05 110 H 06/08/24 23:30 102 H 17 94 06/08/24 21:26 Room Air 06/08/24 21:26 99.1 F 117 H 20 110/59 L 94 Room Air 06/08/24 21:06 115 H 06/08/24 20:00 109 H 20 105/77 98 Room Air Laboratory Results review cbc review chemistry PG Care Time/CCT Total # of Minutes Spent Total Time Spent with Patient: Total time spent is greater than 50% in coordination of care (as documented) at patient's floor/unit and/or counseling patient: Coding Level of Care Code 57597 SUB INP/OBS CARE 3/50MIN Diagnoses Sepsis A41.9 ROSA (obstructive sleep apnea) G47.33 Hypokalemia E87.6 HTN (hypertension) I10
[2024-06-09 07:23] LABS: Basophils # (auto) 0.04 K/uL (0.00-0.20); Basophils % (auto) 0.2 %; Eosinophils # (auto) 0.15 K/uL (0.00-0.50); Eosinophils % (auto) 0.8 %; Immature Granulocytes % (auto) 0.5 %; Lymphocytes # (auto) 0.41 K/uL (1.20-3.40); Lymphocytes % (auto) 2.1 %; Monocytes # (auto) 0.22 K/uL (0.11-0.59); Monocytes % (auto) 1.2 %; Neutrophils # (auto) 18.17 K/uL (1.40-6.50); Neutrophils % (auto) 95.2 %
[2024-06-09 07:38] LABS: Toxic Vacuolation 2+
[2024-06-09] MEDS: ONDANSETRON INJ 2 MG/ML 2 ML VIAL IV PRN (08:17)
--- NOTE | 2024-06-09 09:43 | Electrocardiogram Report ---
Test Reason : Blood Pressure : */* mmHG Vent. Rate : 132 BPM Atrial Rate : 132 BPM P-R Int : 160 ms QRS Dur : 84 ms QT Int : 276 ms P-R-T Axes : -9 -10 50 degrees QTcB Int : 408 ms Sinus tachycardia Nonspecific ST abnormality Abnormal ECG No previous ECGs available Confirmed by Azeem Dillard ([id number]) on 06/09/2024 9:43:22 AM Referred By: REFERRED SELF Confirmed By: Azeem Dillard
--- NOTE | 2024-06-10 11:37 | Hospitalist Progress Note ---
Date of Service June 10, 2024 Assessment & Plan (1) Sepsis: Plan: Secondary to prostatitis s/p prostate biopsy IV Zosyn pending follow up blood and urine culture elevated crp and persistent gross hematuria, discussed with urology, ordered consult , will continue plan of care at present Sepsis secondary to acute prostatitis s/p prostate biopsy, a complication of care (2) ROSA (obstructive sleep apnea): Plan: CPAP HS, continue s (3) Hypokalemia: Plan: replete follow magnesium also (4) HTN (hypertension): Plan: Hold lisinopril/HCTZ Plan VTE Prophylaxis - Lovenox 40mg SQ QPM Diet - regular Admission and Anticipated Discharge Date Admission Date: June 08, 2024 Subjective pt with persistent hematuria improved fever curve e coli bacteremia Physical Exam Physical Exam: pleasant some miryam rectal pain constipation cardiac is regular abd is soft non tender Results & Data Results & Data Vital Signs (Past 12 Hours) Vital Signs Temp Pulse Pulse Resp BP BP Pulse Ox 06/10/24 08:46 112 H 06/10/24 07:41 98.2 F 97 H 20 118/66 151/86 H 96 06/10/24 03:00 98.1 F 92 H 18 122/72 95 O2 Del Method 06/10/24 08:46 06/10/24 07:41 Room Air 06/10/24 03:00 Room Air Laboratory Results labs ordered for 06/11 PG Care Time/CCT Total # of Minutes Spent Total Time Spent with Patient: Total time spent is greater than 50% in coordination of care (as documented) at patient's floor/unit and/or counseling patient: Coding Level of Care Code 88578 SUB INP/OBS CARE 3/50MIN Diagnoses Sepsis A41.9 ROSA (obstructive sleep apnea) G47.33 Hypokalemia E87.6 HTN (hypertension) I10
[2024-06-10] MEDS: SENNA 8.6 MG TAB PO ONE (11:43)
--- NOTE | 2024-06-10 12:42 | Urology Consultation ---
Date of Consultation June 10, 2024 Assessment & Plan (1) Sepsis due to urinary tract infection: 54 yo/M admitted for UTI/sepsis after outpatient prostate biopsy. Patient afebrile, hemodynamically stable Labs reatinine 1.39, WBC 19.09, hemoglobin 13.0; CRP today 27.5 Urine and blood cultures with E. coli UC was intermediate to preoperative antibiotic Ciprofloxacin He is subjectively feeling better since arrival Continue with antibiotics per cultures and can transition to PO antibiotic upon discharge He is voiding spontaneously, continue to monitor emptying and bladder scan prn Discussed that hematuria can be expected at this stage after biopsy and in context of infection Continue supportive care, antibiotics and medical management per hospital medicine Keep outpatient follow-up as scheduled with Dr. John will sign off, recall as needed History of Present Illness Attending Physician: Chas Rodriguez MD History of Present Illness This is a 54-year-old male with history of several elevated PSAs and MRI showing a PI-RADS 4 lesion who underwent UroNav biopsy in office with Dr. John on 06/07/2024. He was treated preprocedure with ciprofloxacin. He presented to the emergency department on 06/08/2024 with rigors, lethargy and weakness and was admitted for UTI/sepsis. On arrival, he was afebrile, tachycardic. Lab work showed leukocytosis of 16.59, creatinine 1.43, hemoglobin 13.5, lactate elevated at 4.9. Urinalysis showed 3+ blood, trace LE, >20 RBC, >50 WBC and 1+ bacteria. Urine and blood cultures collected. CT abdomen pelvis showed enlarged prostate with moderate inflammatory change surrounding prostate, no drainable fluid collection. He was started on IV Zosyn. Urology consulted today for gross hematuria. Labs 06/09 showed creatinine 1.39, WBC 19.09, hemoglobin 13.0. Per chart review, Tmax 38 on 06/09 at 0641. Urine and blood cultures with E. coli. UC was intermediate to Ciprofloxacin. Patient seen and examined at bedside this morning. He is awake and sitting up in bed. Reports he feels better since arrival. No fever or chills at present. Denies pain. Appetite good. He is voiding spontaneously. He reports intermittent gross hematuria. He feels he is emptying his bladder well. Allergies Allergy/AdvReac Type Severity Reaction Status Date / Time No Known Allergies Allergy Verified 06/08/24 18:27 Home Medications Medication Instructions Recorded Confirmed Type acetaminophen 500 mg tablet 500 mg PO Q6H PRN Pain/Fever 06/08/24 06/08/24 History lisinopril 20 1 tab PO QAM 06/08/24 06/08/24 History mg-hydrochlorothiazide 25 mg tablet Patient History Medical History Blood in urine Chronic back pain Kidney stones PASSED ON OWN Surgical History S/P epidural steroid injection facet joint injection (03/2020) Hx of LASIK BOTH Family History Father Cardiac disorder Diabetes Hypertension Mother Cardiac disorder Gallbladder disease Hypertension Denies family history of Ovarian cancer Prostate cancer Myocardial infarction Breast cancer Colorectal cancer Social History Smoking Status: Never smoker Second Hand Exposure: No; Do You Dip or Chew Tobacco: No; Hx Alcohol Use: No Hx Substance Use: No Preferred Language: Portuguese Communication Ability: Effective Visual Impairment: No Limitations Hearing Ability: Normal Location Manager Required: No Beliefs That Will Affect Care: None marital status: Current Living Situation: Spouse and Family current occupational status: employed 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 [employer] How many Children do You have: 2 Other Information That Helps Us Care for You: No Feels Safe at Home: Yes Safety Concerns: Feels Safe At This Time Childhood Exposure to Second-Hand Smoke: No Diet: regular caffeine: Yes during the past year weight has: remained stable Dental Care, Regularly: Yes Physical Activity Frequency: Daily Seatbelt Use: always Sunscreen Use: No Assistive Devices: None Review of Systems Review of Systems: All systems reviewed & are unremarkable except as noted in HPI & below Physical Exam Constitutional: well developed and well nourished; no acute distress Respiratory: normal respiratory effort; no respiratory distress and no labored breathing Gastrointestinal (Abdomen): Inspection/Auscultation: abdomen normal to inspection Musculoskeletal: Head/Neck/Chest: normocephalic Neurologic: moves all extremities and awake Psychiatric: Orientation: alert and oriented x 3 Results & Data Vital Signs (Past 12 Hours) Vital Signs Temp Pulse Pulse Resp BP BP Pulse Ox 06/10/24 12:00 36.5 C 87 18 135/69 149/70 H 97 06/10/24 08:46 112 H 06/10/24 07:41 36.8 C 97 H 20 118/66 151/86 H 96 06/10/24 03:00 36.7 C 92 H 18 122/72 95 O2 Del Method 06/10/24 12:00 Room Air 06/10/24 08:46 06/10/24 07:41 Room Air 06/10/24 03:00 Room Air PG Care Time/CCT Total # of Minutes Spent Total Time Spent with Patient: Total time spent is greater than 50% in coordination of care (as documented) at patient's floor/unit and/or counseling patient: Coding Level of Care Code 23079 IN/OBS CONSULT LVL 4,60M Diagnoses Sepsis due to urinary tract infection A41.9; N39.0
[2024-06-10] MEDS: POLYETHYLENE (MIRALAX) 17 GM PACK PO ONE ×2 (17:09→21:02)
[2024-06-11 02:59] VITALS: TEMP 98.2
[2024-06-11 06:42] LABS: Hematocrit (blood only) 32.4 % (42.0-52.0); Hemoglobin 10.9 g/dl (14.0-18.0); Mean Corpuscular Hemoglobin 27.5 pg (25.0-34.0); Mean Corpuscular Hgb Conc 33.6 g/dL (32.0-36.0); Mean Corpuscular Volume 81.8 fL (80.0-100.0); Mean Platelet Volume 12.1 fL (9.4-12.4); Platelet Count 146 K/uL (130-400); RDW Coefficient of Variation 13.5 % (11.5-14.5); RDW Standard Deviation 40.4 fL (36.4-46.3); Red Blood Count 3.96 M/uL (4.70-6.10)
[2024-06-11 07:07] VITALS: BP 152/92; RESP 19; O2SAT 95
[2024-06-11 09:01] LABS: BUN Creatinine Ratio 17.1 (10-20); Calcium 8.6 mg/dl (8.6-10.3); Potassium 3.7 mmol/L (3.5-5.1)
[2024-06-11 10:50] VITALS: PULSE 89
--- NOTE | 2024-06-11 15:45 | Discharge Summary ---
Discharge Summary Date of Service June 11, 2024 Principal Dx & Hospital Course #1 = Principal Diagnosis (1) Sepsis: Secondary to prostatitis s/p prostate biopsy e coli that is intermediate to cipro, will have home on bactrim ds discussed with urology, ordered consult , no interventions seen. will continue plan of care at present Sepsis secondary to acute prostatitis s/p prostate biopsy, a complication of care (2) ROSA (obstructive sleep apnea): CPAP HS, continue (3) Hypokalemia: replete (4) HTN (hypertension): resume lisinopril/HCTZ Plan Diet - regular Notes For Next Care Provider will have follow up with urology for hematuria Admission HPI Per Admitting Provider Kameron Phillips is a 54 year old male who presents to the ER with rigors. He underwent prostate biopsy yesterday with ciprofloxacin for antibiotic prophylaxis. he was feeling well prior to the procedure. Later that night he started having rigors starting around 11pm. No chest pain, shortness of breath, cough, abdominal pain, diarrhea, flank tenderness or urinary symptoms. Discharge Exam pleasant no distress agreeable to be discharged Discharge Plan Discharge Items Patient Disposition: Home - Self-Care Reason For Visit: UTI SEPSIS Discharge Diagnosis: urinary and blood stream infection with E coli recent transrectal prostate biopsy Activity: Resume your previous activity Non-emergency contact: Primary Care Provider and Urologist Call non-emergency contact if: your symptoms worsen Follow-up/Referrals: Kaylin Jurado MD [Primary Care Provider] - 06/15/24 9:40 am (Hospital follow up scheduled June 15 at 9:40 with Brandy Hernandez PA-C at the [facility]. 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 Provider Instructions: contact Dr Manzano office for follow up appointment Pending Studies at Discharge: No Stand-Alone Forms: [employer], Work/School Release, Smoking Cessation Medications and DC Order Prescriptions: New sulfamethoxazole-trimethoprim [Bactrim DS] 800-160 mg tablet 1 tab PO BID 7 Days Qty: 14 0RF Continued acetaminophen 500 mg Tablet 500 mg PO Q6H PRN (Reason: Pain/Fever) lisinopril-hydrochlorothiazide 20-25 mg tablet 1 tab PO QAM Rx Instructions: TAKE 1 TABLET BY MOUTH ONCE DAILY IN THE MORNING Discharge Orders: Discharge Order (Routine); Ordered 06/11/24 Ordered By: Chas Rodriguez Admission Data Admit Date/Time: 06/08/24 19:16 Attending Provider: Chas Rodriguez Admit Provider: Jerry Nguyễn Primary Care Provider: Kaylin Jurado Other Providers: Jerry Nguyễn; Amanda Lackey Other Interventions: Discharge Summary Assessment (RN) Last Done: 06/11/24 10:49 Hospital Stay Data Consultations 06/08/24 18:45 ED Decision to Admit Stat 06/10/24 11:39 Consult Urology Routine Diagnostic Imagining Performed 06/08/24 16:59 CT abd pelvis IV con only Stat Pending Results Patient Have Any Pending Studies at Discharge: No Discharge Instructions Given to Patient (Per Discharging Provider) drink plenty of liquids to assure good urine flow alternate water and non water drinks please see urology in follow up return to ER if you have fever over 100F/37.7 C or if you cannot urinate Total Time Total Time Spent Total Time Spent (In Minutes): It required greater than 30 minutes to prepare this patient for discharge. Coding Level of Care Code 80350 INP/OBS DISCH >30 MIN Diagnoses Sepsis A41.9 ROSA (obstructive sleep apnea) G47.33 Hypokalemia E87.6 HTN (hypertension) I10
== END 2024-06-11 11:40 | disposition home or self-care (01) | DRG 698 ==
LOC: ED 14:57 → SUATTDRO 19:16 → 2S 19:16